=== PATIENT | male | born 1980 | race Caucasian/White ===

== ENCOUNTER 2020-02-03 01:37 | Emergency (ER) | payer BC ==
[2020-02-03] MEDS ORDERED: Iopamidol 612 MG/ML 100 ML Bottle IVPUSH ONE (03:25)
[2020-02-03 08:03] LABS: ANION GAP 13.6 mEq/L (7-13); CHLORIDE,CL 102 mmol/L (98-109); SODIUM,NA 139 mmol/L (138-146)
== END 2020-02-03 05:12 ==
LOC: DL.ED 01:37
DX: K35.80 Unspecified acute appendicitis (principal)
CPT/HCPCS: 36415; 74177; 80053; 81001; 82150; 83605; 83690; 85025; 87040; 99285; Q9967